=== PATIENT | female | born 1980 | race Caucasian/White ===

== ENCOUNTER 2021-03-27 11:48 | Emergency (ER) | payer BC ==
--- NOTE | 2021-03-27 12:15 | EDM.PDOC ---
ED HPI GENERAL MEDICAL PROBLEM - General Chief Complaint: Lower Extremity Injury/Pain Stated Complaint: Right ankle pain Time Seen by Provider: 03/27/21 12:00 Source of Information: Reports: Patient History Limitations: Reports: No Limitations - History of Present Illness INITIAL COMMENTS - FREE TEXT/NARRATIVE: pt presents to the ER accompanied by . pt states she was walking down the steps from a camper when she "slipped and my right foot went through the (toe kick) stairs and I went to the ground. pt states she was unable to bear weight on ankle initially but unsure if this was due to apprehension or actual injury. she states ROM to ankle and foot is intact, denies numbness to ankle or foot, TTP of foot or ankle. Onset: Today Treatments COLLECTIONS ASSISTANT: Reports: Cold Therapy Right Lower Ankle Pain Score (Numeric/FACES): 7 - Related Data Allergies Allergy/AdvReac Type Severity Reaction Status Date / Time No Known Allergies Allergy Verified 03/27/21 12:11 Home Meds: Home Meds Fish Oil/Baskin-3 Fatty Acids [Fish Oil 1,000 MG] 03/27/21 [History] Norethindrone 1 tab PO DAILY 03/27/21 [History] Review of Systems - Review of Systems Review Of Systems: Comprehensive ROS is negative, except as noted in HPI. ED EXAM, GENERAL - Physical Exam Exam: See Below Exam Limited By: No Limitations General Appearance: Alert, WD/WN, No Apparent Distress Respiratory/Chest: No Respiratory Distress, Normal Breath Sounds Cardiovascular: Normal Peripheral Pulses, No Edema Peripheral Pulses: 2+: Radial (L), Radial (R), Posterior Tibial (L), Posterior Tibial (R), Dorsalis Pedis (L), Dorsalis Pedis (R) Extremities: Normal Range of Motion, Non-Tender, No Pedal Edema, Other (passive and active ROM intact to right ankle. no posterior or anterior lateral or medial malleolar TTP, no TTP to 5th metatarsal. some "soreness" to palpation of distal tibia.) Skin Exam: Warm, Dry, Other (abrasion to medial malleolus of right ankle.) Course - Vital Signs Last Recorded V/S: Last Vital Signs Temp 97.9 F 03/27/21 12:01 Pulse 89 03/27/21 12:01 Resp 20 03/27/21 12:01 BP 146/101 H 03/27/21 12:01 Pulse Ox 98 03/27/21 12:01 - Orders/Labs/Meds Orders: Active Orders 24 hr Category Date Time Status Ankle Min 3V Rt [CR] Stat Exams 03/27/21 12:08 Taken Tibia Fibula Rt [CR] Stat Exams 03/27/21 12:08 Taken - Radiology Interpretation Free Text/Narrative:: right tib fib: no fractures or bony abnormalities noted right ankle: no noted dislocation, fractures or bony abnormalities noted. Departure - Departure Time of Disposition: 13:13 Disposition: Home, Self-Care 01 Condition: Good Clinical Impression: Right ankle sprain - Discharge Information *PRESCRIPTION DRUG MONITORING PROGRAM REVIEWED*: Not Applicable *COPY OF PRESCRIPTION DRUG MONITORING REPORT IN PATIENT TOMASZ: Not Applicable Forms: ED Department Discharge Care Plan Goals: tylenol 1000mg and ibuprofen 600mg QID PRN ice, elevation and rest if symptoms worsen or do not improve over the next week, follow up in your PCP office for recheck and reimaging. Sepsis Event Note (ED) - Evaluation Sepsis Screening Result: No Definite Risk - Focused Exam Vital Signs: Vital Signs Temp Pulse Resp BP Pulse Ox 03/27/21 12:01 97.9 F 89 20 146/101 H 98 - Problem List & Annotations (1) Right ankle sprain SNOMED Code(s): 80272725 Code(s): S93.401A - SPRAIN OF UNSPECIFIED LIGAMENT OF RIGHT ANKLE, INIT ENCNTR Status: Acute - Problem List Review Problem List Initiated/Reviewed/Updated: Yes - My Orders Last 24 Hours: My Active Orders 03/27/21 12:08 Ankle Min 3V Rt [CR] Stat Tibia Fibula Rt [CR] Stat - Assessment/Plan Last 24 Hours: My Active Orders 03/27/21 12:08 Ankle Min 3V Rt [CR] Stat Tibia Fibula Rt [CR] Stat Assessment:: right ankle sprain plan: rachana wrap, ICE. follow up with PCP if no change in 7 days. return to ER if discomfort worsens.
--- NOTE | 2021-03-29 06:47 | CR ---
Date of Service: 03/27/21 Clinical Data: Fall, right ankle pain. RIGHT ANKLE: No acute fracture or dislocation. No lytic or blastic bone lesions. There are plantar and posterior calcaneal spurs. [id number] [facility]
--- NOTE | 2021-03-29 06:49 | CR ---
Date of Service: 03/27/2021 Clinical Data: Fall, right ankle pain. RIGHT LOWER LEG: No acute fracture or dislocation. No lytic or blastic bone lesions. [id number] [facility]
== END 2021-03-27 13:02 | disposition home or self-care (01) ==
LOC: LB.ED 11:48
DX: S93.401A Sprain of unspecified ligament of right ankle, initial encounter (principal); W18.40XA Slipping, tripping and stumbling without falling, unspecified, initial encounter; Y93.01 Activity, walking, marching and hiking
CPT/HCPCS: 73590-RT; 73610-RT; 99283-25